=== PATIENT | female | born 1950 | race Caucasian/White ===

== ENCOUNTER → 2017-09-12 | Outpatient (CLI) | payer BC | LOC: FIMAGING 09:10 | PROVIDERS: ATTEND Physician Assistant | DX: Z13.820 Encounter for screening for osteoporosis (principal); M85.89 Other specified disorders of bone density and structure, multiple sites; Z78.0 Asymptomatic menopausal state; Z87.81 Personal history of (healed) traumatic fracture ==

== ENCOUNTER → 2018-04-06 | Outpatient (CLI) | payer OTHER, BC | LOC: FIMAGING 07:53 | PROVIDERS: ATTEND Orthopaedic Surgery | DX: Z01.818 Encounter for other preprocedural examination (principal); M17.11 Unilateral primary osteoarthritis, right knee ==

== ENCOUNTER 2018-04-17 07:42 | Inpatient (IN) | payer OTHER, BC ==
--- NOTE | 2018-04-17 06:21 | PDHPUP ---
History & Physical Update H&P update statement: This history and physical update is based on an assessment of the patient which was completed after admission or registration (within 24 hours), but prior to the surgery/procedure. H&P update: no change in patient's condition since H&P completed
--- NOTE | 2018-04-17 06:21 | PDIAF ---
- Diagnosis Diagnosis: right knee djd Code Status: Full Code - Medication Management Discharge Medications: electronically signed and located in the Home Medication List. - Orders Services needed: Home Care, Physical Therapy Home Care Face to Face: I certify that this patient was under my care and that I had the required farc-vc-zbck encounter meeting the encounter requirements on the discharge day. My findings support the fact that the patient is homebound as defined in Home Care Face to Face Continued: CMS Chapter 7 Medicare Benefits Manual 30.1.1 , The condition of the patient is such that there exists a normal inability to leave home and consequently, leaving home would require a considerable and taxing effort. Diet Recommendation: no restrictions on diet Diet Texture: Regular Texture Diet Additional Instructions: TOTAL JOINT ARTHROPLASTY DISCHARGE INSTRUCTIONS 1. Your surgeon follows the [facility] protocol for reducing your risk of DVT (blood clots) following surgery. Medication will be ordered to prevent blood clots. A sudden increase in calf pain and/or swelling could indicate a blood clot in your leg. If this occurs, please call your surgeon or his/her assistant plant control operator. An ultrasound of the leg may be necessary to diagnose a blood clot. If you have conditions that make you a higher risk for blood clots, your surgeon may use more aggressive ways to prevent them. Notify your surgeon if you think you are a high risk for blood clots. 2. Wear your white surgical stockings (NINA hose) for 2 weeks. This decreases your swelling and may help prevent blood clots. It is ok to remove NINA hose at night time to give your legs a break. 3. Swelling and bruising in the surgical leg is common. If you feel that it is excessive, please notify your surgeon. 4. Elevate your surgical leg with the ankle above the hip several times every day. Please keep the leg straight when you elevate by putting pillows under your foot. Do not put pillows under your knee. This will make being able to fully straighten more difficult. This is uncomfortable, but try to do it as much as possible. 5. For total knee replacements use compressive wrap on your knee for 3-5 days after surgery, then you can discontinue it. 6. Use a walker or crutches for 1-2 weeks. Progress your weight-bearing as tolerated. You may start to use a cane when you feel stable and safe. 7. You will receive physical therapy instructions in the hospital. Continue those exercises at home. There are additional exercises in the total joint booklet you were given before surgery. Outpatient physical therapy will begin 7- 10 days after surgery. Please schedule this in advance. 8. Use ice on your knee at least 3-5 times every day for 30 minutes. This helps reduce pain and swelling. Also use it at night before falling asleep. 9. Leave your surgical dressing in place for 2 weeks. Your dressing is water resistant, but not waterproof. Cover it with Saran Wrap or Cyaip-u-Bofn before showering. You may shower as soon as you feel safe entering a shower. If you notice bleeding from your incision 2 or 3 days after surgery, please notify your surgeon. 10. Due to narcotics, decreased activity and altered diet, most patients experience constipation after surgery. Use uara-wim-zvbcxyc stool softeners while you are on narcotics. 11. You may drive a car when you are comfortable bearing weight, have good muscular control of your leg and are off narcotics. This usually occurs 2-4 weeks after surgery, depending on which leg was operated on. 12. If there are questions not addressed here, please refer the [facility] book given for more information. If you still have questions, please contact your surgeon s office. 13. If you have a life-threatening emergency, please call 911 and go to the emergency room immediately. For non-life threatening emergencies, please call your physicians office for advice before going to the emergency room. - Follow Up Care Current Providers and Referrals: Yimi Pierce MD [Medical Doctor] - Dee Dee Ortiz PA [Primary Care Provider] -
[2018-04-17] MEDS ORDERED: ACETAMINOPHEN 325 MG TAB PO ONE (07:57)
[2018-04-17] MEDS ORDERED: ceFAZolin 2 GM/DEXTROSE 100 ML IV ONE (07:57)
[2018-04-17] MEDS ORDERED: FAMOTIDINE 20 MG TAB PO ONE (07:57)
[2018-04-17] MEDS ORDERED: LR 1,000 ML IV ONE (07:58)
[2018-04-17] MEDS ORDERED: MIDAZOLAM 2 MG/2 ML VIAL IVP ONE (09:17)
--- NOTE | 2018-04-17 09:25 | PDANEPAE ---
ANE History of Present Illness DJD R knee s/f R TKR ANE Past Medical History - Cardiovascular History Hx Hypertension: No Hx Arrhythmias: No Hx Chest Pain: No Hx Coronary Artery / Peripheral Vascular Disease: No Hx CHF / Valvular Disease: No Hx Palpitations: No - Pulmonary History Hx COPD: No Hx Asthma/Reactive Airway Disease: No Hx Recent Upper Respiratory Infection: No Hx Oxygen in Use at Home: No Hx Sleep Apnea: No Sleep Apnea Screening Result - Last Documented: Negative - Neurologic History Hx Cerebrovascular Accident: No Hx Seizures: No Hx Dementia: No - Endocrine History Hx Diabetes: No - Renal History Hx Renal Disorders: No - Liver History Hx Hepatic Disorders: No - Neurological & Psychiatric Hx Hx Neurological and Psychiatric Disorders: No Neurological / Psychiatric History Comment: SITUATIONAL ANXIETY - Cancer History Hx Cancer: Yes Cancer History Comment: SKIN - Congenital Disorder History Hx Congenital Disorders: No - GI History Hx Gastrointestinal Disorders: Yes Gastrointestinal History Comment: DIVERTICULOSIS - Other Health History Other Health History: OSTEOARTHRITIS. MILD ANEMIA - Chronic Pain History Chronic Pain: Yes (RT KNEE) - Surgical History Prior Surgeries: HYSTERECTOMY. RT KNEE SCOPE. LT BREAST BX ANE Review of Systems Review of Systems: - Exercise capacity METS (RN): 4 METS ANE Patient History - Allergies Allergies/Adverse Reactions: nitrofurantoin Allergy (Intermediate, Unverified 03/31/18 10:49) Other-Enter Comments sunscreen Allergy (Uncoded 04/17/18 08:07) - Home Medications Home medications: home medication list seen and reviewed Home Medications: Cholecalciferol Vit D3 [Vitamin D3 (*)] 2,000 units PO DAILY 03/31/18 [Last Taken 1 Week Ago ~04/10/18] Herbals/Supplements -Info Only 1 ea PO DAILY 03/31/18 [Last Taken 1 Week Ago ~] Multivitamins [Multivitamin (*)] 1 each PO DAILY 03/31/18 [Last Taken 1 Week Ago ~04/10/18] Zolpidem Tartrate [Ambien] 5 - 10 mg PO HS PRN 03/31/18 [Last Taken 1 Week Ago ~ 04/10/18] Iron DAILY 04/07/18 [Last Taken 04/14/18] - NPO status NPO Status: no food or drink >8 hours NPO Since - Liquids (Date): 04/17/18 NPO Since - Liquids (Time): 03:00 NPO Since - Solids (Date): 04/16/18 NPO Since - Solids (Time): 17:00 - Anes Hx Anes Hx: no prior problems - Smoking Hx Smoking Status: Former smoker - Alcohol Use Alcohol Use: None - Family Anes Hx Family Anes Hx: none ANE Labs/Vital Signs - Labs - CBC WBC: reviewed and okay - Vital Signs Blood Pressure: 132/79 Heart Rate: 69 Respiratory Rate: 18 O2 Sat (%): 97 Height: 172.72 cm Weight: 74.843 kg ANE Physical Exam - Airway Mallampati Score: Class 2 Mouth exam: normal dental/mouth exam - Pulmonary Pulmonary: no respiratory distress - Cardiovascular Cardiovascular: regular rate and rhythym - ASA Status ASA Status: II ANE Anesthesia Plan Anesthesia Plan: spinal Regional Anesthesia: adductor canal FNB
[2018-04-17] MEDS ORDERED: CALCIUM CHLORIDE 1 GM/10 ML INJ ONE (09:26)
[2018-04-17] MEDS ORDERED: ceFAZolin 1 GM/5 ML SYR ONE (09:26)
[2018-04-17] MEDS ORDERED: THROMBIN (BOVINE) 5,000 UNIT VIAL TP ONE (09:26)
[2018-04-17] MEDS ORDERED: BUPIVACAINE/EPI 0.5% 30 ML SDV ONE (09:27)
[2018-04-17] MEDS ORDERED: fentaNYL 100 MCG/2 ML INJ ONE (09:41)
[2018-04-17] MEDS ORDERED: PROPOFOL/EMULSION 500 MG/50 ML BOTTLE IV ONE (09:41)
[2018-04-17] MEDS ORDERED: ePHEDrine SULFATE 25 MG/5 ML SYR ONE (10:37)
[2018-04-17] MEDS ORDERED: PROPOFOL 200 MG/20 ML VIAL ONE (10:53)
[2018-04-17] MEDS ORDERED: NALOXONE HCL 0.4 MG/ML INJ IVP PRN (11:02)
[2018-04-17] MEDS ORDERED: oxyCODONE IR 5 MG TAB PO PRN (11:02)
[2018-04-17] MEDS ORDERED: ONDANSETRON 4 MG/2 ML VIAL IVP PRN ×2 (11:02)
[2018-04-17] MEDS ORDERED: METOCLOPRAMIDE 10 MG/2 ML VIAL IVP PRN ×2 (11:02)
[2018-04-17] MEDS ORDERED: MAGNESIUM HYDROXIDE 30 ML UDCUP PO PRN (11:02)
[2018-04-17] MEDS ORDERED: PROMETHAZINE HCL 25 MG/ML INJ IVP PRN ×2 (11:02)
[2018-04-17] MEDS ORDERED: fentaNYL 100 MCG/2 ML INJ IVP PRN (11:02)
[2018-04-17] MEDS ORDERED: BISACODYL 10 MG SUPP PR PRN (11:02)
[2018-04-17] MEDS ORDERED: diphenhydrAMINE 25 MG CAP PO PRN (11:02)
[2018-04-17] MEDS ORDERED: MEPERIDINE 25 MG/0.5 ML AMP IVP PRN (11:02)
[2018-04-17] MEDS ORDERED: PROMETHAZINE HCL 25 MG SUPPR PR PRN (11:02)
[2018-04-17] MEDS ORDERED: TEMAZEPAM 15 MG CAP PO PRN (11:02)
[2018-04-17] MEDS ORDERED: POLYETHYLENE GLYCOL 3350 17 GM PKT PO PRN (11:02)
[2018-04-17] MEDS ORDERED: LR 500 ML IV PRN (11:02)
[2018-04-17] MEDS ORDERED: DEXAMETHASONE 4 MG/ML VIAL IVP PRN (11:02)
[2018-04-17] MEDS ORDERED: LACTULOSE 20 GM/30 ML UDCUP PO PRN (11:02)
[2018-04-17] MEDS ORDERED: PHENYLEPHRINE HCL 100 MCG/ML SYR IVP PRN (11:02)
[2018-04-17] MEDS ORDERED: CYCLOBENZAPRINE 10 MG TAB PO PRN (11:02)
[2018-04-17] MEDS ORDERED: ALBUTEROL 3 ML DEYVIAL IH PRN (11:02)
[2018-04-17] MEDS ORDERED: LABETALOL HCL 5 MG/ML 20 ML MDV IVP PRN (11:02)
[2018-04-17] MEDS ORDERED: DIPHENOXYLATE/ATROPINE LOMOTIL 1 TAB PO PRN (11:02)
--- NOTE | 2018-04-17 11:05 | POSTOPPROG ---
Post Op Note Date of Operation: 04/17/18 Surgeon: Yimi Pierce Federal Java Developer: ansley Anesthesiologist: delfin Anesthesia: Spinal Pre-op Diagnosis: right knee djd Post-op Diagnosis: same Indication: same Procedure: right tka Inf/Abcess present in the surg proc area at time of surgery?: No Depth: Deep Incisional (Fascial) EBL: 50-100
[2018-04-17] MEDS ORDERED: ROPIVACAINE 0.2% 80 MG, EPINEPHrine 0.2 MG, KETOROLAC TROMETHAMINE 30 MG, morphINE 10 M... IU ONE (11:10)
[2018-04-17] MEDS ORDERED: TRANEXAMIC ACID 1,000 MG in NS 100 ML IV ONE (11:10)
--- NOTE | 2018-04-17 11:29 | POSTANESTH ---
Post Anesthetic Evaluation Cardiovascular Status: Normal, Stable Respiratory Status: Normal, Stable Level of Consciousness/Mental Status: Can Participate in Eval Pain Control: Adequate, Prn Tx Ordered Nausea/Vomiting Control: Adequate, Prn Tx Ordered Complications Possibly Related to Anesthesia: None Noted
[2018-04-17] MEDS ORDERED: LR 1,000 ML IV SCH (11:30)
[2018-04-17] MEDS: ACETAMINOPHEN 325 MG TAB PO SCH ×2 (13:26→18:01)
[2018-04-17] MEDS: TRANEXAMIC ACID 650 MG TAB PO SCH ×2 (14:15→21:02)
[2018-04-17] MEDS: ceFAZolin 2 GM/DEXTROSE 100 ML IV SCH (18:01)
[2018-04-17] MEDS: ONDANSETRON DISINTEGRATING 4 MG TAB PO PRN (20:56)
[2018-04-17] MEDS: SENNOSIDES/DOCUSATE SODIUM TAB PO SCH (21:01)
[2018-04-17] MEDS: ASPIRIN 325 MG TAB PO SCH (21:01)
[2018-04-17] MEDS: FAMOTIDINE 20 MG TAB PO SCH (21:02)
[2018-04-18] MEDS: ACETAMINOPHEN 325 MG TAB PO SCH ×2 (00:18→05:46)
[2018-04-18] MEDS: ceFAZolin 2 GM/DEXTROSE 100 ML IV SCH (02:22)
[2018-04-18] MEDS: oxyCODONE IR 5 MG TAB PO PRN ×2 (02:25→06:21)
[2018-04-18] MEDS ORDERED: PNEUMOC 13-VAL CONJ-DIP CRM/PF 0.5 ML SYR (PREVNAR 13) IM ONE (05:44)
[2018-04-18] MEDS: TRANEXAMIC ACID 650 MG TAB PO SCH (05:46)
--- NOTE | 2018-04-18 07:16 | PDIAF ---
- Diagnosis Diagnosis: right knee djd Code Status: Full Code - Medication Management Discharge Medications: electronically signed and located in the Home Medication List. - Orders Services needed: Home Care, Physical Therapy Home Care Face to Face: I certify that this patient was under my care and that I had the required husz-vy-aqdd encounter meeting the encounter requirements on the discharge day. My findings support the fact that the patient is homebound as defined in Home Care Face to Face Continued: CMS Chapter 7 Medicare Benefits Manual 30.1.1 , The condition of the patient is such that there exists a normal inability to leave home and consequently, leaving home would require a considerable and taxing effort. Diet Recommendation: no restrictions on diet Diet Texture: Regular Texture Diet Additional Instructions: TOTAL JOINT ARTHROPLASTY DISCHARGE INSTRUCTIONS 1. Your surgeon follows the [facility] protocol for reducing your risk of DVT (blood clots) following surgery. Medication will be ordered to prevent blood clots. A sudden increase in calf pain and/or swelling could indicate a blood clot in your leg. If this occurs, please call your surgeon or his/her child welfare assistant. An ultrasound of the leg may be necessary to diagnose a blood clot. If you have conditions that make you a higher risk for blood clots, your surgeon may use more aggressive ways to prevent them. Notify your surgeon if you think you are a high risk for blood clots. 2. Wear your white surgical stockings (NINA hose) for 2 weeks. This decreases your swelling and may help prevent blood clots. It is ok to remove NINA hose at night time to give your legs a break. 3. Swelling and bruising in the surgical leg is common. If you feel that it is excessive, please notify your surgeon. 4. Elevate your surgical leg with the ankle above the hip several times every day. Please keep the leg straight when you elevate by putting pillows under your foot. Do not put pillows under your knee. This will make being able to fully straighten more difficult. This is uncomfortable, but try to do it as much as possible. 5. For total knee replacements use compressive wrap on your knee for 3-5 days after surgery, then you can discontinue it. 6. Use a walker or crutches for 1-2 weeks. Progress your weight-bearing as tolerated. You may start to use a cane when you feel stable and safe. 7. You will receive physical therapy instructions in the hospital. Continue those exercises at home. There are additional exercises in the total joint booklet you were given before surgery. Outpatient physical therapy will begin 7- 10 days after surgery. Please schedule this in advance. 8. Use ice on your knee at least 3-5 times every day for 30 minutes. This helps reduce pain and swelling. Also use it at night before falling asleep. 9. Leave your surgical dressing in place for 2 weeks. Your dressing is water resistant, but not waterproof. Cover it with Saran Wrap or Entis-g-Bzrq before showering. You may shower as soon as you feel safe entering a shower. If you notice bleeding from your incision 2 or 3 days after surgery, please notify your surgeon. 10. Due to narcotics, decreased activity and altered diet, most patients experience constipation after surgery. Use xhki-dfm-hlgsadk stool softeners while you are on narcotics. 11. You may drive a car when you are comfortable bearing weight, have good muscular control of your leg and are off narcotics. This usually occurs 2-4 weeks after surgery, depending on which leg was operated on. 12. If there are questions not addressed here, please refer the [facility] book given for more information. If you still have questions, please contact your surgeon s office. 13. If you have a life-threatening emergency, please call 911 and go to the emergency room immediately. For non-life threatening emergencies, please call your physicians office for advice before going to the emergency room. - Follow Up Care Current Providers and Referrals: Yimi Pierce MD [Medical Doctor] - Dee Dee Ortiz PA [Primary Care Provider] -
--- NOTE | 2018-04-18 07:17 | SOAPPROG ---
SOAP Progress Note Assessment/Plan: Assessment: s/p tka Plan: dc home wbat dvt precautions reviewed fu at two weeks seek attn for increasing pain or drainage 04/18/18 07:16 Subjective: n o cp or sob estela po no nausea Objective: Vital Signs Temp Pulse Resp BP Pulse Ox 36.1 C 59 L 14 92/45 L 98 04/18/18 04:00 04/18/18 04:00 04/18/18 04:00 04/18/18 04:00 04/18/18 04:00 Laboratory Results 04/18/18 04:34 04/17/18 04/18/18 04/19/18 05:59 05:59 05:59 Intake Total 3050 Output Total 3300 Balance -250 dressing intact intact pdf,ehl toes warm and pink neg homans hesham xrays stable anatomic alignement no fx or lucency ICD10 Worksheet Patient Problems: Problems Problem Status Onset Arthritis of knee Acute - ICD10 Problem Qualifiers (1) Arthritis of knee
--- NOTE | 2018-04-18 07:17 | PDIAF ---
- Diagnosis Diagnosis: right knee djd Code Status: Full Code - Medication Management Discharge Medications: electronically signed and located in the Home Medication List. - Orders Services needed: Home Care, Physical Therapy Home Care Face to Face: I certify that this patient was under my care and that I had the required twbd-ho-mhvl encounter meeting the encounter requirements on the discharge day. My findings support the fact that the patient is homebound as defined in Home Care Face to Face Continued: CMS Chapter 7 Medicare Benefits Manual 30.1.1 , The condition of the patient is such that there exists a normal inability to leave home and consequently, leaving home would require a considerable and taxing effort. Diet Recommendation: no restrictions on diet Diet Texture: Regular Texture Diet Additional Instructions: TOTAL JOINT ARTHROPLASTY DISCHARGE INSTRUCTIONS 1. Your surgeon follows the [facility] protocol for reducing your risk of DVT (blood clots) following surgery. Medication will be ordered to prevent blood clots. A sudden increase in calf pain and/or swelling could indicate a blood clot in your leg. If this occurs, please call your surgeon or his/her assistant mechanic. An ultrasound of the leg may be necessary to diagnose a blood clot. If you have conditions that make you a higher risk for blood clots, your surgeon may use more aggressive ways to prevent them. Notify your surgeon if you think you are a high risk for blood clots. 2. Wear your white surgical stockings (NINA hose) for 2 weeks. This decreases your swelling and may help prevent blood clots. It is ok to remove NINA hose at night time to give your legs a break. 3. Swelling and bruising in the surgical leg is common. If you feel that it is excessive, please notify your surgeon. 4. Elevate your surgical leg with the ankle above the hip several times every day. Please keep the leg straight when you elevate by putting pillows under your foot. Do not put pillows under your knee. This will make being able to fully straighten more difficult. This is uncomfortable, but try to do it as much as possible. 5. For total knee replacements use compressive wrap on your knee for 3-5 days after surgery, then you can discontinue it. 6. Use a walker or crutches for 1-2 weeks. Progress your weight-bearing as tolerated. You may start to use a cane when you feel stable and safe. 7. You will receive physical therapy instructions in the hospital. Continue those exercises at home. There are additional exercises in the total joint booklet you were given before surgery. Outpatient physical therapy will begin 7- 10 days after surgery. Please schedule this in advance. 8. Use ice on your knee at least 3-5 times every day for 30 minutes. This helps reduce pain and swelling. Also use it at night before falling asleep. 9. Leave your surgical dressing in place for 2 weeks. Your dressing is water resistant, but not waterproof. Cover it with Saran Wrap or Ajjdo-a-Eqrm before showering. You may shower as soon as you feel safe entering a shower. If you notice bleeding from your incision 2 or 3 days after surgery, please notify your surgeon. 10. Due to narcotics, decreased activity and altered diet, most patients experience constipation after surgery. Use qsyc-taq-rzrzekd stool softeners while you are on narcotics. 11. You may drive a car when you are comfortable bearing weight, have good muscular control of your leg and are off narcotics. This usually occurs 2-4 weeks after surgery, depending on which leg was operated on. 12. If there are questions not addressed here, please refer the [facility] book given for more information. If you still have questions, please contact your surgeon s office. 13. If you have a life-threatening emergency, please call 911 and go to the emergency room immediately. For non-life threatening emergencies, please call your physicians office for advice before going to the emergency room. - Follow Up Care Current Providers and Referrals: Yimi Pierce MD [Medical Doctor] - Dee Dee Ortiz PA [Primary Care Provider] -
[2018-04-18 08:03] VITALS: BP 118/65
--- NOTE | 2018-04-18 09:23 | GDS ---
ADMIT DIAGNOSIS: Right knee degenerative joint disease. DISCHARGE DIAGNOSIS: Right knee degenerative joint disease. PROCEDURE: Right total knee arthroplasty. HISTORY OF PRESENT ILLNESS: The patient is a 67-year-old woman with end-stage arthritis to her right knee consistent with this. She has failed all attempts at conservative management. I nogueira ve recommended total knee replacement. HOSPITAL COURSE: The patient was admitted overnight after an uncomplicated total knee arthroplasty. She tolerated the procedure well. At the time of discharge, she is tolerating an oral diet. Pain i s well controlled on oral medicines. She is voiding without difficulty. Dressing is clean, dry, and intact. She has no calf swelling or tenderness. Negative Homans. X-rays are stable with anatomic alignment. DISCHARGE ACTIVITY: Weightbearing as tolerated. Range of motion as tolerated. Daily dressing heck es. FOLLOWUP: In 2 weeks. Seek attention for increasing redness, swelling, drainage, discharge, or othe r focal complaints. /[id number]/MODL
[2018-04-18] MEDS: ASPIRIN 325 MG TAB PO SCH (09:33)
[2018-04-18] MEDS: FAMOTIDINE 20 MG TAB PO SCH (09:33)
[2018-04-18] MEDS: SENNOSIDES/DOCUSATE SODIUM TAB PO SCH (09:33)
[2018-04-18] MEDS: ONDANSETRON DISINTEGRATING 4 MG TAB PO PRN (10:11)
--- NOTE | 2018-04-18 10:24 | GOP ---
DATE OF OPERATION: 04/17/2018 SURGEON: Yimi Pierce MD TECHNICAL SERVICES CONSULTANT: Kyle Lai, JACQUARD TWINE POLISHER OPERATOR, BID MANAGER, surgical elastic knitter, was a medical necessity for the entirety of the case. PREOPERATIVE DIAGNOSIS: Right knee degenerative joint disease. POSTOPERATIVE DIAGNOSIS: Right knee degenerative joint disease. PROCEDURE PERFORMED: Right total knee arthroplasty, MAKOplasty. FINDINGS: SPECIMENS: To Pathology, the bony cuts. INDICATIONS: The patient is a 67-year-old woman with end-stage arthritis to her right knee. Clinica l and radiographic features are consistent with this. She has failed all attempts at conservative ma nagement. I have, therefore, recommended a right total knee replacement. She understood the risks, benefits, alternatives, and wished to proceed. Written consent was signed and placed in the patient' s chart. DESCRIPTION OF PROCEDURE: Patient was identified in the preanesthesia area. The right knee clearly demarcated as the operative site with indelible marker. She was given 1 g of vancomycin given her pe nicillin allergy on route to the operative suite. In the OR, spinal anesthetic was placed. She was positioned in the supine position. Appropriate time-out procedure was carried out. The limb was the n sterilely prepped and draped in the usual fashion. An anterior midline incision was made. Thick subcutaneous flaps were elevated, followed by medial pa rapatellar arthrotomy. Subperiosteal elevation was carried out to the mid coronal plane and retracto rs were placed. The knee demonstrated tricompartmental arthritis, decision was made to proceed. Two pins were then placed from the medial to the lateral femur and the femoral reference array affixe d. Femoral and tibial checkpoints were placed. Two pins were then placed into the mid tibia and a s eparate percutaneous incision, and the tibial reference array affixed. All bony landmarks were enter ed in the computer in standard fashion. The marginal osteophytes were withdrawn. The knee was evaristo yara through the flexion-extension arc. Using the MAKOplasty robot, resections were made for size 4 femur, size 4 tibia. Trial reduction was carried out with a 4 x 9 mm polyethylene spacer. This allowed neutral limb alignment, full extensio n, flexion 125 degrees without instability to varus and valgus stress through the flexion-extension a rc. Trial components were withdrawn. In sequential fashion, the tibial femoral components were then plac ed. Polyethylene spacer was placed, confirmed to be fully seated. The kneecap was everted, cut in a freehand cutting technique. Drill holes were made for a size 32 mm patella. This was then press-fi t into position. Knee cap tracked centrally through the flexion-extension arc. The wound was copiously irrigated. The capsular and tissues were instilled with a joint cocktail of ropivacaine, Toradol, and epinephrine. The medial parapatellar arthrotomy closed with #1 Ethibond ruiz ture. The knee instilled with platelet-rich plasma solution. Subcutaneous tissue closed using 2-0 M onocryl, and the skin with jacob. Sterile dressing was applied. Patient was awakened, extubated, and taken to recovery room in good, stable condition. TOTAL TOURNIQUET TIME: 40 minutes. COMPLICATIONS: None. IMPLANTS: [place] Triathlon posterior stabilized femoral component size 4, [employer] Triathlon titaniu m tibial component size 4, 4 x 9 mm polyethylene spacer, a 32 mm asymmetric patella. DISPOSITION: To the recovery room, then the floor. She will be weightbearing, range of motion as to lerated. /[id number]/MODL
--- NOTE | 2018-04-18 10:34 | ASMTLACE ---
LACE Length of stay for Answers: 2 days current admission Acuity / Level of Answers: Yes Care: Did the patient have an inpatient admission? Comorbidities - select Answers: Opioid dependence all that apply / Chronic pain Other Notes: Diverticulosis # of Emergency department Answers: 0 visits in the last 6 months Score: 10 Date Signed: 04/18/2018 10:34 AM Electronically Signed By:PAXTON Thakkar
--- NOTE | 2018-04-18 10:36 | ASMTCMCOM ---
CM Note CM Note Notes: Pt medically stable for d/c with [facility] PT. Orders to be obtained via [employer]. Pt address/phone verified. Date Signed: 04/18/2018 10:35 AM Electronically Signed By:PAXTON Thakkar
--- NOTE | 2018-04-18 14:42 | ASDISCHSUM ---
Discharge Information Plan Status:Home with Home Health Medically Cleared to Leave: Discharge Date:04/18/2018 12:30 PM CM D/C Disposition: ADT D/C Disposition:Home Health Service Projected Discharge Date:04/18/2018 11:00 AM Transportation at D/C: Discharge Delay Reason: Follow-Up Date:04/18/2018 11:00 AM Discharge Slot: Final Diagnosis: Placement Information Referral Type:*Home Health Care Services Referral ID:[id number] Provider Name:[facility] Address 1:[address] Address 2: City:[place] Selection Factors: State:[place] Patient Contact Information Contact Name:JAYAJACQUELINLIANE Relationship: Address:[address] City:[place] Alternate Phone: State/Zip Code:[place] [address] Email: Financial Information Financial Class:Medicare Primary Plan Desc:MEDICARE INPATIENT Primary Plan Number:[id number] Secondary Plan Desc:[employer] [facility] Secondary Plan Number:[id number] Assessment Information LACE LACE Length of stay for Answers: 2 days current admission Acuity / Level of Answers: Yes Care: Did the patient have an inpatient admission? Comorbidities - select Answers: Opioid dependence all that apply / Chronic pain Other Notes: Diverticulosis # of Emergency department Answers: 0 visits in the last 6 months Score: 10 Date Signed: 04/18/2018 10:34 AM Electronically Signed By:PAXTON Thakkar [facility] CM Progress Note CM Note CM Note Notes: Pt medically stable for d/c with [facility] PT. Orders to be obtained via [employer]. Pt address/phone verified. Date Signed: 04/18/2018 10:35 AM Electronically Signed By:PAXTON Thakkar Intervention Information
--- NOTE | 2018-04-19 00:06 | PDMN ---
Medical Necessity Medical necessity: Pt meets IP criteria as of 04/17/18 per MD and [facility] S-[facility] (TKA) ; est los > 2 mn s/p TKA d/t advanced age.
== END 2018-04-18 12:30 | disposition home health service (06) | DRG 470 ==
LOC: F3N 07:42
PROVIDERS: ADMIT Orthopaedic Surgery; ATTEND Orthopaedic Surgery
PROC: 0SRC0JZ Replacement of Right Knee Joint with Synthetic Substitute, Open Approach (ICD-10-PCS; principal; 2018-04-17 09:45)
PROC: 8E0Y0CZ Robotic Assisted Procedure of Lower Extremity, Open Approach (ICD-10-PCS; principal; 2018-04-17 09:45)
DX: M17.11 Unilateral primary osteoarthritis, right knee (principal); M94.261 Chondromalacia, right knee; Z87.891 Personal history of nicotine dependence
CPT/HCPCS: 97116-GP; 97161-GP; 97165-GO; 97530-GP; G0009; J0171; J0690; J1885; J2250; J2270; J2405; J2704; J2795; J3010

== ENCOUNTER → 2018-05-24 | Outpatient (CLI) | payer OTHER, BC | LOC: BMCIMAGING 08:32 | PROVIDERS: ATTEND Orthopaedic Surgery | DX: Z47.1 Aftercare following joint replacement surgery (principal); M25.461 Effusion, right knee; Z96.651 Presence of right artificial knee joint ==

== ENCOUNTER → 2018-07-24 | Outpatient (CLI) | payer OTHER, BC | LOC: BMCIMAGING 09:55 | PROVIDERS: ATTEND Physician Assistant | DX: Z47.1 Aftercare following joint replacement surgery (principal); Z96.651 Presence of right artificial knee joint ==